=== PATIENT | male | born 1985 | race American Indian/Alaskan Native ===

== ENCOUNTER 2019-12-15 20:04 | Emergency (ER) | payer SELFPAY ==
[2019-12-15] MEDS ORDERED: IBUPROFEN 600 MG TAB PO ONE (20:16)
[2019-12-15] MEDS ORDERED: NEOMY 3.5 MG/BACIT 400 UNITS/POLY B 5000 UNITS/GM OINT PACKET TP ONE (20:16)
[2019-12-15] MEDS ORDERED: ACETAMINOPHEN 500 MG TAB PO ONE (20:16)
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
[2019-12-15 21:53] VITALS: BP 111/66
== END 2019-12-15 21:54 | disposition home or self-care (01) ==
LOC: ED 20:04
DX: S83.91XA Sprain of unspecified site of right knee, initial encounter (principal); S00.03XA Contusion of scalp, initial encounter; S50.812A Abrasion of left forearm, initial encounter; Z79.899 Other long term (current) drug therapy; V49.49XA Driver injured in collision with other motor vehicles in traffic accident, initial encounter; Y92.410 Unspecified street and highway as the place of occurrence of the external cause; Y93.89 Activity, other specified; Y99.8 Other external cause status
CPT/HCPCS: 70450; A6250